=== PATIENT | male | born 1965 | race African-American/Black ===

== ENCOUNTER 2016-10-25 20:44 | Emergency (ER) | payer SELFPAY ==
[~2016-10-25] VITALS: Ht 185.4 cm; Wt 99.8 kg
[2016-10-25 20:50] VITALS: BP 142/62
[2016-10-25] MEDS ORDERED: DIPHTH,PERTUSS(ACELL),TET TOX 0.5 ML DISP.SYRIN. VAX IM ONE (21:30)
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
[2016-10-25] MEDS ORDERED: OXYC-323 PO (23:00)
[2016-10-25] MEDS ORDERED: ONDA8TAB12 PO (23:00)
[2016-10-25] MEDS ORDERED: AMOX1TAB11 PO (23:01)
[2016-10-25] MEDS ORDERED: HYDROmorphone PF 1 MG/ML DISP.SYRIN IM ONE (23:15)
== END 2016-10-25 23:22 | disposition home or self-care (01) ==
LOC: ER 20:44
DX: S02.609A Fracture of mandible, unspecified, initial encounter for closed fracture (principal); S00.531A Contusion of lip, initial encounter; K04.7 Periapical abscess without sinus; W22.8XXA Striking against or struck by other objects, initial encounter; Y93.89 Activity, other specified; Y99.8 Other external cause status; Y92.89 Other specified places as the place of occurrence of the external cause
CPT/HCPCS: 70450; 70486; 72125; 90471; 90715; 96372; 99284; J1170

== ENCOUNTER 2018-06-12 20:57 | Emergency (ER) | payer BC ==
[~2018-06-12] VITALS: Ht 185.4 cm; Wt 117.0 kg
[~2018-06-12 20:57] MED LIST: AMOX1TAB11 PO; ONDA8TAB12 PO; OXYC1TAB15 PO
[2018-06-12] MEDS ORDERED: ETOMIDATE 40 MG/20 ML VIAL. IV ONE (21:00)
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
[2018-06-12] MEDS ORDERED: OLANZapine IM 10 MG VIAL. IM ONE ×2 (21:26→22:00)
[2018-06-12] MEDS ORDERED: diphenhydrAMINE 50 MG/ML VIAL ONE (21:26)
[2018-06-12] MEDS ORDERED: OLANZapine IM 10 MG VIAL. IM PRN (21:30)
[2018-06-12] MEDS ORDERED: IV RINGERS SOLUTION,LACTATED 1,000 ML IV SCH (21:30)
[2018-06-12] MEDS ORDERED: diphenhydrAMINE 50 MG/ML VIAL IM ONE (22:00)
[2018-06-12] MEDS ORDERED: MVI, ADULT NO.4 WITH VIT K 10 ML, FOLIC ACID SYRINGE for ER 1 MG, THIAMINE INJ 100 MG i... IV ONE ×4 (22:00)
[2018-06-12] MEDS ORDERED: MIDAZOLAM HCL PF 5 MG/5 ML VIAL. IV PRN (22:00)
[2018-06-12] MEDS ORDERED: CONTRAST GIVEN MC PRN (22:15)
--- NOTE | 2018-06-12 22:15 | EKG ---
[address] [address] Test Date: 2018-06-12 Test Time: 22:12:58 Pat Name: ELVER MAHONEY Department: Room: Gender: M Anesthesiology Technologist: NUVIA : 1965 Requested By: ALBARO SALAS Order Number: [id number] Reading MD: Paco Marc MD Measurements Intervals [place] Rate: 104 P: 59 WV: 170 QRS: 34 QRSD: 96 T: -6 QT: 338 QTc: 445 Interpretive Statements SINUS TACHYCARDIA NON-SPECIFIC ST/T CHANGES Electronically Signed On 06-14-2018 14:36:15 CDT by Paco Marc MD
[2018-06-12] MEDS ORDERED: IOHEXOL 300 MG/ML 75 ML VIAL. IV ONE ×2 (22:30→23:30)
[2018-06-12 22:38] LABS: BASO # 0.1 x10^3/uL (0.0-0.2); BASO % 1 % (0-3); EOS # 0.1 x10^3/uL (0.0-0.7); EOS % 2 % (0-3); HEMATOCRIT 42.7 % (39.0-53.0); HEMOGLOBIN 13.7 g/dL (13.0-17.5); LYMPH # 0.9 x10^3/uL (1.0-4.8); LYMPH % 16 % (24-48); MEAN CORPUSCULAR HEMOGLOBIN 25 pg (25-35); MEAN CORPUSCULAR HGB CONC 32 g/dL (31-37); MEAN CORPUSCULAR VOLUME 79 fL (79-100); MONO # 0.3 x10^3/uL (0.0-1.1); MONO % 5 % (0-9); NEUT % 76 % (31-73); PLATELET COUNT 249 x10^3/uL (140-400); RED BLOOD COUNT 5.41 x10^6/uL (4.30-5.70); RED CELL DISTRIBUTION WIDTH 16.1 % (11.5-14.5); WHITE BLOOD COUNT 5.3 x10^3/uL (4.0-11.0)
[2018-06-12 22:52] LABS: ALBUMIN 3.6 g/dL (3.4-5.0); CALCIUM 8.1 mg/dL (8.5-10.1); DIRECT BILIRUBIN 0.1 mg/dL (0.0-0.2); GFR 94.9; TOTAL BILIRUBIN 0.2 mg/dL (0.2-1.0); TOTAL PROTEIN 7.3 g/dL (6.4-8.2)
[2018-06-12] MEDS ORDERED: THIAMINE 200 MG/2 ML VIAL. IV ONE (23:03)
[2018-06-12] MEDS ORDERED: FOLIC ACID 5 MG/ML SYRINGE for ER IV ONE (23:04)
[2018-06-12] MEDS ORDERED: MVI, ADULT NO.4 WITH VIT K 10 ML VIAL IV ONE (23:04)
[2018-06-12] MEDS ORDERED: LIDOCAINE 2% TOPICAL JELLY 5GM TUBE. TP ONE (23:14)
--- NOTE | 2018-06-12 23:32 | RAD ---
CT Head W/O Contrast: History: Fall down stairs tonight. Patient sedated. Comparison: none Axial images were obtained without contrast. The ellsworth and white matter appears normal and symmetrical for the patients age. There is no mass effect, extraaxial fluid collections or hydrocephalus. There is no gross bleed. There is no focal loss of ellsworth-white matter distinction to suggest acute ischemia, i.e. stroke. There is a hematoma anteriorly above the left orbit. There is blood in left maxillary sinus and there is subtle irregularity of the floor of the left orbit and the medial wall of the left maxillary sinus. Impression: 1. Hematoma above the left orbit and possible left orbital floor fracture and fracture of the maxillary sinus. 2. No acute intracranial findings. End impression CT C-Spine without contrast: Clinical History: Fall down stairs tonight. Patient sedated. Technique: Axial helical images of the cervical spine were obtained without contrast, axial coronal and sagittal reconstruction was performed. Findings: There is no loss of vertebral body stature. There is no prevertebral soft tissue swelling. The vertebral bodies are well aligned. The C1-C2 relationship is normal. The visualized osseous structures appear normal. There is moderate motion artifact. Impression: Mildly limited study due to motion artifact. No acute findings. Clinical correlation suggested. See CT head without contrast. PQRS Compliance Statement: One or more of the following individualized dose reduction techniques were utilized for this examination: 1. Automated exposure control 2. Adjustment of the mA and/or kV according to patient size 3. Use of iterative reconstruction technique Electronically signed by: Nikolai Cowan III, MD (06/12/2018 11:29 PM) [facility]
--- NOTE | 2018-06-12 23:35 | RAD ---
CT chest abdomen pelvis with contrast dated 06/12/2018. No comparison available. Clinical indication: Pain after fall down stairs today. TECHNIQUE: Contiguous axial imaging the chest abdomen pelvis performed after the administration of 100 cc Isovue-370. One or more of the following individualized dose reduction techniques were utilized for this examination: 1. Automated exposure control 2. Adjustment of the mA and/or kV according to patient size 3. Use of iterative reconstruction technique. FINDINGS: Heart size mildly enlarged. No pericardial effusion. There are mildly enlarged prevascular, subcarinal and bilateral hilar lymph nodes measuring up to 11 mm short axis. No axillary adenopathy. Central airways are patent. There is some patchy groundglass opacity at both lung bases and bilateral upper lobes, nonspecific. No consolidation or pleural effusion. No pneumothorax. Liver and spleen are homogeneous. No hematoma or laceration. Pancreas, gallbladder and adrenal glands are unremarkable. There are low-density lesions at the upper and mid pole left kidney that most likely represent cysts. Right kidney unremarkable. No hydronephrosis. Unopacified GI tract normal in caliber and contour. No focal bowel wall thickening. No inflammatory stranding in the mesentery. The appendix is normal in caliber. No ascites or lymphadenopathy. Images of pelvis show nondistended urinary bladder. Prostate gland normal in size. No free fluid or lymphadenopathy. Small umbilical hernia containing only fat. Bone windows show no acute findings. Evaluation for rib fracture is somewhat limited due to motion artifact. Spondylotic changes of the thoracolumbar spine. No vertebral compression fractures apparent. IMPRESSION CHEST: 1. No traumatic abnormality of chest. 2. Patchy groundglass opacity throughout both lungs, nonspecific. 3. Borderline enlarged mediastinal and bilateral hilar lymph nodes, nonspecific. Impression abdomen pelvis: 1. No traumatic abnormality of abdomen or pelvis. 2. Probable left renal cysts. 3. Small umbilical hernia containing only fat. Electronically signed by: John Cisneros MD (06/12/2018 11:32 PM) [facility]
[2018-06-12 23:49] LABS: BARBITURATES NEG (NEG); BENZODIAZEPINES NEG (NEG); CANNABINOIDS NEG (NEG); COCAINE NEG (NEG); METHADONE NEG (NEG); OPIATES NEG (NEG); PHENCYCLIDINE NEG (NEG)
--- NOTE | 2018-06-12 23:50 | RAD ---
CT maxillofacial without contrast History: Pain after fell down stairs Axial helical images of the face were obtained without contrast. Axial, sagittal and coronal reconstruction was performed. The nasal septum is mildly deviated to the right. The ostiomeatal complexes are narrow but patent. There is moderate mucoperiosteal thickening left fracture sinus with fluid. The visualized osseous structures appear grossly intact. There is motion artifact. The orbits appear normal. Impression: Marked left maxillary sinus disease. No fracture seen. RS Compliance Statement: One or more of the following individualized dose reduction techniques were utilized for this examination: 1. Automated exposure control 2. Adjustment of the mA and/or kV according to patient size 3. Use of iterative reconstruction technique Electronically signed by: Nikolai Cowan III, MD (06/12/2018 11:47 PM) [facility]
--- NOTE | 2018-06-12 23:52 | RAD ---
PORTABLE CHEST 1V Clinical History: Fall down stairs tonight. Patient sedated, unable to sit up or follow breathing instructions Technique: AP view of the chest was obtained at 06/12/2018 10:47 PM. Comparison: None. Findings: There is low lung volumes causing crowding of pulmonary vasculature. There is patchy opacities of the lungs. Heart size is top normal limits. Impression: Bilateral infiltrates could be discoid atelectasis or pulmonary contusion or aspiration pneumonia. Recommend short-term follow-up PA and lateral view of the chest at full inspiration. Electronically signed by: Nikolai Cowan III, MD (06/12/2018 11:49 PM) [id number]
[2018-06-12 23:54] LABS: AMPHETAMINE/METHAMPHETAMINE NEG (NEG)
[2018-06-13] MEDS ORDERED: POTASSIUM CHLORIDE 20MEQ 100 ML IV SCH (00:30)
[2018-06-13] MEDS ORDERED: DIPHTH,PERTUSS(ACELL),TET TOX 0.5 ML DISP.SYRIN. VAX IM ONE (00:30)
[2018-06-13] MEDS ORDERED: SUCCINYLCHOLINE 200 MG/10 ML VIAL. ONE (00:47)
[2018-06-13] MEDS ORDERED: POTASSIUM CHLORIDE 10MEQ 100 ML IV SCH (01:00)
[2018-06-13] MEDS ORDERED: PROPOFOL 100 ML IV ONE (01:08)
[2018-06-13] MEDS ORDERED: IPRATRPIUM/ALBUTEROL 0.5/2.5MG 3 ML NEBU. ONE (01:40)
--- NOTE | 2018-06-13 02:04 | RAD ---
PORTABLE CHEST 1V Clinical History: Tube Placement Technique: AP view of the chest was obtained at 06/13/2018 1:08 AM. Comparison: June 12, 2018. Findings: The initial tube with its tip 6.3 cm above the myles and NG tube with its tip in the mid stomach. The cardiomediastinal silhouette is normal. The pulmonary vessels are slightly cephalized and slightly congested. The lungs and pleural margins are clear. Impression: 1. Intrauterine tube and NG tube well-positioned. 2. Mild pulmonary edema likely secondary to CHF appears slightly improved. Electronically signed by: Nioklai Cowan III, MD (06/13/2018 2:01 AM) [id number]
[2018-06-13] MEDS ORDERED: IV NORMAL SALINE 50ML 50 ML ONE (02:19)
[2018-06-13] MEDS ORDERED: cefTRIAXone SODIUM 1 GM VIAL ONE (02:19)
[2018-06-13] MEDS ORDERED: ERYTHROMYCIN 0.5% OPHTH OINTMENT 1GM TUBE. OU ONE (02:30)
[2018-06-13] MEDS ORDERED: IPRATRPIUM/ALBUTEROL 0.5/2.5MG 3 ML NEBU. NEB ONE (02:30)
[2018-06-13 02:45] VITALS: BP 110/64
== END 2018-06-13 02:56 | disposition short-term general hospital (02) ==
LOC: ER 20:57
DX: S02.82XA Fracture of other specified skull and facial bones, left side, initial encounter for closed fracture (principal); S02.40DA Maxillary fracture, left side, initial encounter for closed fracture; S06.0X1A Concussion with loss of consciousness of 30 minutes or less, initial encounter; S01.511A Laceration without foreign body of lip, initial encounter; R41.82 Altered mental status, unspecified; E87.6 Hypokalemia; R79.1 Abnormal coagulation profile; R59.9 Enlarged lymph nodes, unspecified; F10.229 Alcohol dependence with intoxication, unspecified; F17.210 Nicotine dependence, cigarettes, uncomplicated; J44.9 Chronic obstructive pulmonary disease, unspecified; I10 Essential (primary) hypertension; G47.30 Sleep apnea, unspecified; Y90.8 Blood alcohol level of 240 mg/100 ml or more; W10.8XXA Fall (on) (from) other stairs and steps, initial encounter; Y93.89 Activity, other specified; Y92.89 Other specified places as the place of occurrence of the external cause; Y99.8 Other external cause status
CPT/HCPCS: 31500; 36415; 36600; 43752; 51702; 70450; 70486; 71045; 71250; 72125; 74176; 80048; 80076; 80307; 82550; 82803; 83690; 83735; 84443; 84484; 85025; 85379; 85610; 85730; 93005; 94640; 96361; 96365; 96367; 96368; 96372; 96375; 99285; G0480; J0696; J1200; J2060; J2250; J3480; J3490; J7120; J7620; Q9967; 94002